=== PATIENT | female | born 1975 | race Hispanic/Latino ===

== ENCOUNTER 2016-06-27 08:30 | Day surgery (SDC) | payer OTHER ==
[2016-06-21 11:54] VITALS: BMI 28.9
[2016-06-27] MEDS ORDERED: Bupivacaine 0.5% Inj(30mL) ONE (10:52)
--- NOTE | 2016-07-01 19:46 | OP ---
PROCEDURE DATE: 06/27/2016 SURGEON: Cristóbal Wilkerson MD FACTORY PROCESS WORKERS: Parish Jiménez MD PREOPERATIVE DIAGNOSES: Pelvic pain, dysmenorrhea, dyspareunia. POSTOPERATIVE DIAGNOSES: Pelvic pain, dysmenorrhea, dyspareunia plus pelvic endometriosis. PROCEDURE PERFORMED: Hysteroscopy, diagnostic, and a robotic excision of endometriosis. ANESTHESIA: General endotracheal. ESTIMATED BLOOD LOSS: Minimal. COMPLICATIONS: None. DESCRIPTION OF PROCEDURE: After adequate anesthesia was obtained, the patient was placed in the dors al lithotomy position. The patient was prepped and draped and the surgeon gowned and gloved. A spec ulum was placed in the vagina. The anterior lip of the cervix was grasped. The cervix was gently di lated and the uterine cavity was visualized, appearing to be normal. Both ureters were seen. There was no evidence of polyps or tumors. At this point, a uterine manipulator was placed in the uterus a nd attention was on the abdomen where after re-gowning and re-gloving, an laparoscopy was performed. In the infraumbilical area a blunt trocar was inserted and the abdomen was insufflated. Under direc t visualization, a left lower quadrant and right lower quadrant and trocars were inserted. The da Asha robot was then docked. Multiple areas of endometriosis were identified and they were in th e left pelvic sidewall, the left periureteral area and the right pelvic sidewall. These areas of per itoneum containing endometriosis were excised with extreme care to avoid the ureters and any other va scular area. All the samples were then excised with large swabs of peritoneum and sent to pathology for permanent. At this point, it was checked for hemostasis that appeared to be excellent. The robo t was undocked. The abdomen was desufflated. The incisions were closed in layers with 0 PDS for the fascia and Monocryl for the skin. All the instruments were removed from the vagina. The patient wa s woken up and taken to the recovery room in excellent condition. Cristóbal Wilkerson MD cc: [id number] TT: 07/01/2016 19:46:33 dn
== END 2016-06-27 19:00 | disposition home or self-care (01) ==
LOC: H.OPSURG 08:30
PROVIDERS: ATTEND Obstetrics & Gynecology Reproductive Endocrinology
DX: N80.3 Endometriosis of pelvic peritoneum (principal); E03.9 Hypothyroidism, unspecified; R10.2 Pelvic and perineal pain; N94.6 Dysmenorrhea, unspecified